=== PATIENT | female | born 1995 | race African-American/Black ===

== ENCOUNTER 2020-02-23 04:19 | Emergency (ER) | payer MEDICAID ==
[~2020-02-23] VITALS: Ht 175.3 cm; Wt 77.0 kg
[2020-02-23] MEDS ORDERED: TETANUS, DIPHTHERIA, PERTUSSIS VAC/PF 0.5ML (>7YR OLD) IM ONE (04:45)
[2020-02-23] MEDS ORDERED: ACETAMINOPHEN 325MG TABLET PO ONE (04:45)
[2020-02-23] MEDS ORDERED: BACITRACIN ZINC OINT UDPKT TOP ONE (04:45)
[2020-02-23] MEDS ORDERED: LIDOCAINE HCL/PF 1% 10 MG/ML 5ML VIAL IJ ONE (04:45)
[2020-02-23 06:01] VITALS: BP 122/73
== END 2020-02-23 06:02 | disposition home or self-care (01) ==
LOC: ER 04:19
DX: S01.412A Laceration without foreign body of left cheek and temporomandibular area, initial encounter (principal); S00.212A Abrasion of left eyelid and periocular area, initial encounter; S00.211A Abrasion of right eyelid and periocular area, initial encounter; Y07.6 Multiple perpetrators of maltreatment and neglect; X99.8XXA Assault by other sharp object, initial encounter; Y04.2XXA Assault by strike against or bumped into by another person, initial encounter; S40.812A Abrasion of left upper arm, initial encounter; S40.811A Abrasion of right upper arm, initial encounter; S20.419A Abrasion of unspecified back wall of thorax, initial encounter; Y93.89 Activity, other specified; Y92.018 Other place in single-family (private) house as the place of occurrence of the external cause; Z23 Encounter for immunization
CPT/HCPCS: 12011; 90471; 90715; 99283; J3490

== ENCOUNTER 2020-02-28 07:25 | Emergency (ER) | payer MEDICAID ==
[~2020-02-28] VITALS: Ht 172.7 cm; Wt 87.0 kg
[2020-02-28 07:38] VITALS: BP 111/56
== END 2020-02-28 08:04 | disposition home or self-care (01) ==
LOC: ER 07:25
DX: Z48.02 Encounter for removal of sutures (principal)
CPT/HCPCS: 99281

== ENCOUNTER 2020-03-03 19:03 | Emergency (ER) | payer MEDICAID ==
[~2020-03-03] VITALS: Ht 172.7 cm; Wt 91.0 kg
[2020-03-03 20:46] VITALS: BP 134/71
== END 2020-03-03 20:47 | disposition home or self-care (01) ==
LOC: ER 19:03
DX: Z48.02 Encounter for removal of sutures (principal)
CPT/HCPCS: 99281